=== PATIENT | male | born 1960 | race Asian ===

== ENCOUNTER 2016-11-26 13:53 | Day surgery (SDC) | payer OTHER ==
[~2016-11-26] VITALS: Ht 170.2 cm; Wt 90.1 kg
[~2016-11-26 13:53] MED LIST: BENAZEPRIL PO
[2016-11-26] MEDS ORDERED: PROPOFOL 20 ML ONE (14:55)
[2016-11-26 16:09] VITALS: Ht 170.2 cm; Wt 90.1 kg
[2016-11-26] MEDS ORDERED: AMLODIPINE (16:16)
[2016-11-26] MEDS ORDERED: OMEPRAZOLE (16:16)
[2016-11-26 16:33] VITALS: BP 121/79; PULSE 52; RESP 25
[2016-11-26 17:31] VITALS: BP 114/87; PULSE 55; RESP 20
--- NOTE | 2016-11-27 09:58 | GILP ---
DATE OF PROCEDURE: 11/26/2016 NAME OF PROCEDURE: Esophagogastroduodenoscopy with biopsies. SURGEON: Jorge Villela MD. PREOPERATIVE DIAGNOSIS: POSTOPERATIVE DIAGNOSIS: DESCRIPTION OF PROCEDURE: BRIEF HISTORY AND INDICATIONS: The patient with history of gastric neoplasm post distal gastrectomy , is here for followup. The patient reports unintentional weight loss in the range of 5 or 6 pounds. PREMEDICATION: Monitored anesthesia care by anesthesiologist. INSTRUMENT USED: Olympus panendoscope. TECHNIQUE: After informed consent, with the patient/relatives understanding the procedure, its indic ations, potential risks and complications, including but not limited to: allergic reaction, bleeding , perforation or infection, and after all pertinent questions were answered to the patients satisfac tion, the patient/relatives signed witnessed informed consent. Following this, premedication was administered slowly IV push under careful cardiovascular and respi ratory monitoring with pulse oximetry, automatic blood pressure and playground monitor. Once the sedative effect was achieved the patient was place in the left lateral decubitus, the panen doscope was introduced and advanced under visual control. Careful examination of the upper gastrointestinal tract, both on insertion as well as withdrawal of the instrument disclosed the following findings: ESOPHAGUS: The mucosa of the entire esophagus appears within normal limits. There is no evidence of esophagitis, varices, neoplasm or stricture. No hiatal hernia identified. STOMACH: Upon entrance to the stomach air was insufflated, it became evident the patient had a dista l gastrectomy. The mucosa of the stomach shows significant erythema and edema and bile staining. B iopsies were obtained to rule out H. pylori infection. The anastomosis is patent. It is a Billroth I anastomosis. The mucosa on the enteric site appears unremarkable. PYLORUS: The pylorus appears patent and within normal limits, with no evidence of gastric outlet obs truction. DUODENUM: The duodenal mucosa was carefully examined in the duodenal bulb as well as the second port ion of the duodenum and appears unremarkable with no evidence of duodenitis, ulcer or neoplasm. The instrument was withdrawn reexamining the mucosa in detail. No additional abnormalities are note d. IMPRESSION: 1. Post-distal gastrectomy Billroth I anastomosis. 2. Bile reflux gastritis. Rule out H. pylori infection. Biopsies obtained. PLAN: The patient will be continued on present regimen with PPIs. Pathology will be reviewed as so on as available. If patient is symptomatic Carafate may be added to his regimen. Dictated By: JORGE VILLELA MS/VENKATESH Conf#: [id number] DID#: [id number] CC: Jorge Villela;*EndCC*
== END 2016-11-26 18:48 | disposition home or self-care (01) ==
LOC: GIL 13:53
PROVIDERS: ATTEND Internal Medicine Gastroenterology
DX: K29.30 Chronic superficial gastritis without bleeding (principal); E66.9 Obesity, unspecified; Z68.31 Body mass index [BMI] 31.0-31.9, adult
CPT/HCPCS: 43239; 88305; 88312; Z7610

== ENCOUNTER 2017-09-30 12:02 | Day surgery (SDC) | payer OTHER ==
[~2017-09-30] VITALS: Ht 167.6 cm; Wt 92.8 kg
[~2017-09-30 12:02] MED LIST changes: +AMLODIPINE; +OMEPRAZOLE
[2017-09-30 12:54] VITALS: Ht 167.6 cm; Wt 92.8 kg
[2017-09-30] MEDS ORDERED: MIDAZOLAM 1 MG/ML 2 ML INJ ONE (14:35)
[2017-09-30] MEDS ORDERED: LIDOCAINE 2% (SDV) 5 ML INJ ONE (14:35)
[2017-09-30] MEDS ORDERED: PROPOFOL 20 ML ONE (14:35)
--- NOTE | 2017-09-30 15:04 | OPPN ---
Date/Time of Note Date/Time of Note DATE: 09/30/17 TIME: 14:56 Proc Note GI Procedure Date 09/30/17 Indication: screening/surveillance Pre-procedure Diagnosis History of gastric CA post Billroth I anastomosis, surveillance Post-procedure Diagnosis Impression: Post distal gastrectomy with Billroth I anastomosis. Small 4 mm polyp approximately 1 cm from anastomosis. Ablated Bile reflux gastritis Anastomosis patent and healthy in appearance Small bowel appears normal Plan: Continue present regimen Review pathology as soon as available Further recommendations pending patient's clinical course. . Procedure Performed: Endoscopy Surgeon JORGE CHAMBERS MD See signature line Program Development Specialist none Anesthesia Type: MAC Anesthesiologist: KARI GARCÍA DO Tourniquet Time none EBL none Transfusion required none Biopsy 1: Gastric body polyp Biopsy 2: Gastric body/rule out H. pylori versus bile reflux gastritis Grafts/Implants none Tubes/Drains none Complication(s) none Disposition: home Procedure Description Preoperative Diagnosis: After informed consent, with the patient/relatives understanding the procedure, its indications, potential risks and complications, including but not limited to : allergic reaction, bleeding, perforation or infection, and after all pertinent questions were answered to the patients satisfaction, the patient/ relatives signed witnessed informed consent. Following this, premedication was administered slowly IV push under careful cardiovascular and respiratory monitoring with pulse oximetry, automatic blood pressure, and nurse monitoring. Once the sedative effect was achieved the patient was place in the left lateral decubitus, the panendoscope was introduced and advanced under visual control. Careful examination of the upper gastrointestinal tract, both on insertion as well as withdrawal of the instrument disclosing the following findings: ESOPHAGUS: the mucosa of the entire esophagus was carefully examined and showed the following findings: []the mucosa appears within normal limits. There is no evidence of esophagitis, varices, neoplasm, or stricture. No Hiatal Hernia identified. STOMACH: Upon entrance to the stomach air was insufflated, the gastric guzman distended normally. There is evidence of a distal gastrectomy with Billroth I anastomosis. The anastomosis is patent and the mucosa appears normal. There is a 4 mm polyp which appears erythematous approximately 1 cm from the anastomosis. It was ablated with biopsy forceps. The gastric mucosa shows erythema, edema and bile staining. Biopsies were obtained to rule out H. pylori infection. DUODENUM: The duodenal mucosa appears unremarkable. JORGE CHAMBERS MD Sep 30, 2017 15:04
[2017-09-30 15:27] VITALS: BP 118/81; RESP 14
== END 2017-09-30 16:38 | disposition home or self-care (01) ==
LOC: GIL 12:02
PROVIDERS: ATTEND Internal Medicine Gastroenterology
DX: Z85.028 Personal history of other malignant neoplasm of stomach (principal); K29.30 Chronic superficial gastritis without bleeding; I10 Essential (primary) hypertension; E66.9 Obesity, unspecified; Z68.33 Body mass index [BMI] 33.0-33.9, adult
CPT/HCPCS: 43239; J2250; Z7610

== ENCOUNTER 2018-10-15 12:11 | Day surgery (SDC) | END 2018-10-15 15:55 | disposition home or self-care (01) ==